=== PATIENT | male | born 1960 | race Caucasian/White ===

== ENCOUNTER → 2023-07-16 | Outpatient (CLI) | payer BC ==
[~2023-07-16] MED LIST: GADOTERATE 0.5 MMOL/ML (CLARISCAN) 15 ML VIAL IV ONE
--- NOTE | 2023-07-16 20:29 | Diagnostic Imaging Report ---
CLINICAL INDICATION: Patient has had sweaty palms. Doctor wants to evaluate pituitary. EXAM: MRI of the brain and pituitary using pituitary protocol performed without and with 14 mL of Clariscan IV gadolinium. Sequences include sagittal T1, axial flair, axial T1, axial gradient echo, axial DWI, axial ADC map, coronal T1 thin, coronal T1 fat sat thin, sagittal T1 thin, coronal T2 fat-sat thin, axial T1 post contrast whole brain, coronal T1 fat-sat post IV contrast whole brain, sagittal T1 post IV contrast whole brain, coronal dynamic post IV gadolinium through the sella, coronal T1 post IV gadolinium thin fat sat, and sagittal T1 post gadolinium thin. COMPARISON: None. FINDINGS: SELLA/SUPRASELLAR REGIONS: Unremarkable. The sella and suprasellar regions have normal anatomic appearance. There is homogenous enhancement of the pituitary gland with no mass lesions. The infundibulum is seen midline with normal appearance. The visualized portions of the optic nerves and pathways are unremarkable. ORBITS/ GLOBES: There are postoperative changes to both globes which may be related to lens implants. Otherwise, both globes and orbits are unremarkable. CAVERNOUS SINUS/ MECKEL'S CAVE: Unremarkable. The bilateral cavernous carotid arteries are patent. BRAIN/ INTRACRANIAL STRUCTURES: There are a few focal areas of low gradient echo signal involving the right frontal lobe and posterior limb of the right internal capsule which may be related to remote microhemorrhage and measure up to 3 mm. There are multiple focal areas of high T2 signal white matter changes involving both cerebral hemispheres in the subcortical and deep white matter of both cerebral hemispheres, likely representing mild chronic small vessel ischemic disease. The brain parenchymal volume appears appropriate for patient's age. There is normal pena-white matter distinction. The visualized [place] vascular structures are unremarkable. There is no hydrocephalus. Basal cisterns are unremarkable. SINUSES: There is mild mucosal thickening involving the ethmoid sinus. There is a small amount of fluid within both mastoid air cells with right side more than the left. CRANIUM/EXTRACRANIAL SOFT TISSUE: Unremarkable. IMPRESSION: 1: Unremarkable MRI of the sella and suprasellar regions. There is no pituitary mass seen. 2: There is mild age related brain parenchymal changes. 3: There are two focal areas of low gradient echo signal involving the right frontal lobe and right internal capsule region which may be related to remote microhemorrhage. 4: There is mild ethmoid sinus mucosal thickening. There is a small amount of fluid within both mastoid air cells. Dictated by: Dictated on workstation # [id number]
== END ==
LOC: RAD 13:39
PROVIDERS: ATTEND Internal Medicine
DX: J34.9 Unspecified disorder of nose and nasal sinuses (principal); E29.1 Testicular hypofunction; G93.9 Disorder of brain, unspecified
CPT/HCPCS: 70553